=== PATIENT | male | born 2000 | race Caucasian/White ===

== ENCOUNTER 2018-07-05 21:50 | Outpatient (CLI) | payer OTHER | END 2018-07-05 21:51 | disposition critical access hospital (66) | LOC: EMS 21:50 | PROVIDERS: ATTEND Surgery | DX: R40.20 Unspecified coma (principal) | CPT/HCPCS: A0425; A0427 ==

== ENCOUNTER 2018-07-05 22:07 | Emergency (ER) | payer OTHER ==
[2018-07-05] MEDS ORDERED: NALOXONE 0.4 MG/ML VIAL ONE (22:36)
[2018-07-05] MEDS ORDERED: ONDANSETRON 4 MG/2 ML VIAL IVP STA (22:50)
--- NOTE | 2018-07-06 00:37 | ED Physician Documentation ---
PD HPI OVERDOSE - Stated complaint Stated Complaint: OD - Chief complaint Chief Complaint: General - History obtained from History obtained from: Patient, EMS - History of Present Illness Subtance(s) ingested: Single, Narcotic (heroin) Contributing factors: Substance abuse Pain level now: 0 Treatment DIRECTOR OF CASEWORK: Narcan Recently seen: Not recently seen - Additional information Additional information: Brought in by ambulance for heroin overdose. friend called 911, when police arrived they found patient was barely breathing. Police administered 0.4 mg Narcan intranasally with some improvement in respiratory rate, medics then arrived and established IV, administered 1.4 mg Narcan IV, and patient rapidly regain consciousness and arrives in emergency department AAOx3. patient tells me that he was in an argument with his girlfriend, and he then went and used heroin via injection. patient says he started using her when approximately one month ago, after being clean from prescription narcotic abuse for two weeks.patient denies using any other drugs tonight. Patient strongly denied suicidal thoughts, and repeatedly requested to be discharged. Review of Systems Cardiac: reports: Reviewed and negative Respiratory: reports: Reviewed and negative GI: reports: Reviewed and negative Neurologic: reports: Reviewed and negative Psychiatric: reports: Reviewed and negative PD PAST MEDICAL HISTORY - Past Medical History Past Medical History: No - Past Surgical History Past Surgical History: No - Present Medications Home Medications: Ambulatory Orders Medication Instructions Recorded Confirmed No Known Home Medications [No 07/05/18 07/05/18 Known Home Medications] - Allergies Allergies/Adverse Reactions: Allergies Allergy/AdvReac Type Severity Reaction Status Date / Time No Known Drug Allergies Allergy Verified 07/05/18 22:32 - Social History Does the pt smoke?: Yes Smoking Status: Current every day smoker Does the pt have substance abuse?: Yes Substance Use and Type: Marijuana, Heroin PD ED PE NORMAL - Vitals Vital signs reviewed: Yes - General General: Alert and oriented X 3, No acute distress, Well developed/nourished - HEENT HEENT: Atraumatic, PERRL, EOMI - Neck Neck: Supple, no meningeal sign - Cardiac Cardiac: RRR, No murmur - Respiratory Respiratory: No respiratory distress, Clear bilaterally - Abdomen Abdomen: Soft, Non tender - Derm Derm: Normal color, Warm and dry - Neuro Neuro: Alert and oriented X 3, saturation diver 2-12 intact, No motor deficit, No sensory deficit, Normal speech - Psych Psych: Normal mood, Normal affect Results - Vitals Vitals: Vital Signs - 24 hr 07/06/18 01:03 Heart Rate 78 Respiratory 18 Rate Blood Pressure 138/77 H O2 Saturation 100 Oxygen O2 Source Room air PD MEDICAL DECISION MAKING - ED course Complexity details: considered differential, d/w patient ED course: patient remained awake, alert, and oriented times three during ED stay. He was calm and cooperative, although also expressed irritation that he awoke in emergency department and that he will have to pay for the medical attention he received tonight. I offered SW services to him which he clearly refuses, repeatedly requests discharge from ED. No emergent testing indicated at this time. Patient says he has narcan at home. - Sepsis Event Vital Signs: Vital Signs - 24 hr 07/06/18 01:03 Heart Rate 78 Respiratory 18 Rate Blood Pressure 138/77 H O2 Saturation 100 Oxygen O2 Source Room air Departure - Departure Disposition: 01 Home, Self Care Clinical Impression: Overdose of heroin Qualifiers: Encounter type: initial encounter Injury intent: accidental or unintentional Qualified Code(s): T40.1X1A - Poisoning by heroin, accidental (unintentional), initial encounter Condition: Good Instructions: ED Overdose Accidental Follow-Up: [facility] [Provider Group] [facility] [Provider Group] Comments: You nearly tonight. You were barely breathing when the police and ambulance got to you, and your life was saved when they gave you the reversal medication (naloxone). Please talk to your doctor about getting help quitting this problem. Return to the emergency department at any time if you want to be reevaluated. Discharge Date/Time: 07/06/18 01:04
[2018-07-06 01:04] VITALS: BP 138/77
== END 2018-07-06 01:04 | disposition home or self-care (01) ==
LOC: EDBD → EDUNIT# → ED 22:07
DX: T40.1X1A Poisoning by heroin, accidental (unintentional), initial encounter (principal); F17.200 Nicotine dependence, unspecified, uncomplicated
CPT/HCPCS: 93005; 96374; 99283

== ENCOUNTER 2018-12-05 00:43 | Outpatient (CLI) | payer OTHER, MEDICAID | END 2018-12-05 00:44 | disposition home or self-care (01) | LOC: EMS 00:43 | PROVIDERS: ATTEND Surgery | DX: R11.0 Nausea (principal); R06.81 Apnea, not elsewhere classified; Z72.89 Other problems related to lifestyle | CPT/HCPCS: A0425; A0429 ==

== ENCOUNTER 2018-12-05 00:57 | Emergency (ER) | payer OTHER, MEDICAID ==
[2018-12-05] MEDS ORDERED: ONDANSETRON 4 MG/2 ML VIAL IVP STA (01:10)
[2018-12-05] MEDS ORDERED: SODIUM CHLORIDE 0.9% 1,000 ML IV ONE ×2 (01:10)
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
[2018-12-05 01:30] LABS: BASOPHILS # (AUTO) 0.1 10^3/uL (0.0-0.1); BASOPHILS % (AUTO) 0.5 %; EOSINOPHILS # (AUTO) 0.1 10^3/uL (0.0-0.7); HGB - HEMOGLOBIN 14.7 g/dL (14.0-18.0); LYMPHOCYTES % (AUTO) 19.9 %; MEAN CORPUSCULAR HEMOGLOBIN 28.8 pg (27.0-31.0); MEAN CORPUSCULAR HGB CONC 34.4 g/dL (32.0-36.0); MEAN CORPUSCULAR VOLUME 83.6 fL (80.0-94.0); MEAN PLATELET VOLUME 7.3 fL (7.4-11.4); MONOCYTES # (AUTO) 0.5 10^3/uL (0.0-1.0); NEUTROPHILS # (AUTO) 7.4 10^3/uL (1.5-6.6); NEUTROPHILS % (AUTO) 73.6 %; PLT - PLATELET COUNT 244 10^3/uL (130-450); RED BLOOD COUNT 5.13 10^6/uL (4.70-6.10); RED CELL DISTRIBUTION WIDTH 13.6 % (12.0-15.0); WHITE BLOOD COUNT 10.1 x10^3/uL (4.8-10.8)
[2018-12-05 01:49] LABS: ACETAMINOPHEN < 10 ug/mL (10-30); ALBUMIN 4.4 g/dL (3.2-5.5); ALBUMIN/GLOBULIN RATIO 1.4 (1.0-2.2); ALKALINE PHOSPHATASE 67 IU/L (42-121); ALT ALANINE AMINOTRANSFERASE 18 IU/L (10-60); AST ASPARTATE AMINOTRANSFERASE 25 IU/L (10-42); BILIRUBIN,TOTAL 0.8 mg/dL (0.2-1.0); BUN - BLOOD UREA NITROGEN 12 mg/dL (6-20); CALCIUM 9.5 mg/dL (8.5-10.3); CARBON DIOXIDE - CO2 29 mmol/L (21-32); CHLORIDE 99 mmol/L (101-111); CREATININE 0.9 mg/dL (0.6-1.2); GFR - MDRD 108 (>89); GLUCOSE 126 mg/dL (70-100); LIPASE 24 U/L (22-51); SALICYLATE < 6.0 mg/dL; SODIUM 141 mmol/L (135-145); TOTAL PROTEIN 7.6 g/dL (6.7-8.2)
[2018-12-05 03:06] VITALS: BP 136/78
== END 2018-12-05 03:15 | disposition home or self-care (01) ==
LOC: EDUNIT# → ED 00:57
DX: T40.2X1A Poisoning by other opioids, accidental (unintentional), initial encounter (principal); Y92.009 Unspecified place in unspecified non-institutional (private) residence as the place of occurrence of the external cause; Z04.1 Encounter for examination and observation following transport accident; F17.200 Nicotine dependence, unspecified, uncomplicated
CPT/HCPCS: 36415; 80053; 80307; 80320; 80329; 83690; 84443; 85025; 93005; 96361; 96374; 99284